=== PATIENT | female | born 1975 | race Caucasian/White ===

== ENCOUNTER 2023-02-13 16:01 | Emergency (ER) | payer BC ==
[2023-02-13] MEDS ORDERED: Ketorolac 30 MG/ML SDV IM ONE (16:24)
== END 2023-02-13 16:45 | disposition home or self-care (01) ==
LOC: VM.ED 16:01
DX: K03.81 Cracked tooth (principal); K02.9 Dental caries, unspecified; Z88.1 Allergy status to other antibiotic agents; Z72.0 Tobacco use
CPT/HCPCS: 96372; 99283; J1885

== ENCOUNTER 2023-04-06 12:45 | Emergency (ER) | payer BC ==
[2023-04-06] MEDS ORDERED: Take Home: Amoxicillin/Clavulanate K 875-125 MG Tab, 2 Tab Pack PO ONE (12:57)
== END 2023-04-06 13:11 | disposition home or self-care (01) ==
LOC: VM.ED 12:45
DX: K04.7 Periapical abscess without sinus (principal); K02.9 Dental caries, unspecified; Z72.0 Tobacco use; Z88.1 Allergy status to other antibiotic agents
CPT/HCPCS: 99282; A9270

== ENCOUNTER 2024-03-25 19:39 | Emergency (ER) | payer BC ==
[2024-03-25 20:27] LABS: HEMATOCRIT 43.5 % (33.0-47.0); HEMOGLOBIN 13.8 g/dL (12.0-16.0); MEAN CORPUSCULAR HEMOGLOBIN 26.5 pg (26.0-32.0); MEAN CORPUSCULAR HGB CONC 31.7 g/dL (32.0-36.0); MEAN CORPUSCULAR VOLUME 83.5 fL (78.0-93.0); PLATELET COUNT,PLT 144 x10^3/uL (130-400); RED BLOOD CELL COUNT 5.21 x10^6/uL (4.00-5.50)
[2024-03-25 20:51] LABS: WHITE BLOOD CELL COUNT,WBC 1.9 x10^3/uL (4.0-10.0)
[2024-03-25 20:56] LABS: BAND PERCENT MAN 3 % (0-6); LYMPHOCYTES ABSOLUTE MAN 0.5 x10^3/uL (1.0-4.8); LYMPHOCYTES PERCENT MAN 25 % (25-50); MONOCYTES PERCENT MAN 1 % (2-11); NEUTROPHILS ABSOLUTE MAN 1.4 x10^3/uL (1.8-7.7); SEG NEUTROPHILS PERCENT MAN 71 % (50-80)
[2024-03-25 20:57] LABS: PLATELET COUNT ESTIMATE ADEQUATE
[2024-03-25 20:59] LABS: ANION GAP 19.6 mmol/L (5-15); BLOOD UREA NITROGEN,BUN 16 mg/dL (7-18); C-REACTIVE PROTEIN < 0.50 mg/dL (<=0.50); CARBON DIOXIDE,CO2 22 mmol/L (21-32); CHLORIDE,CL 102 mmol/L (98-107); CREATININE 1.1 mg/dL (0.55-1.02); ESTIMATED GFR 62 mL/min (>=60); GLUCOSE RANDOM 124 mg/dL (70-99); POTASSIUM,K 3.6 mmol/L (3.5-5.1); SODIUM,NA 140 mmol/L (136-145)
[2024-03-25] MEDS: Ketorolac 30 MG/ML SDV IVPUSH ONE (21:13)
[2024-03-25 21:18] LABS: AMPHETAMINES SCREEN, URINE POSITIVE (NEGATIVE); BARBITURATE SCREEN,URINE NEGATIVE (NEGATIVE); BENZODIAZEPINES SCREEN,URINE POSITIVE (NEGATIVE); BUPRENORPHINE SCREEN,URINE POSITIVE (NEGATIVE); COCAINE METABOLITES,URINE NEGATIVE (NEGATIVE); METHADONE SCREEN, URINE NEGATIVE (NEGATIVE); METHAMPHETAMINE SCREEN, URINE POSITIVE (NEGATIVE); OXYCODONE SCREEN,URINE NEGATIVE (NEGATIVE); PCP SCREEN,URINE NEGATIVE (NEGATIVE); THC SCREEN,URINE 50 NG/ML POSITIVE (NEGATIVE)
[2024-03-25] MEDS: Iopamidol 612 MG/ML 100 ML Bottle IVPUSH ONE (21:52)
[2024-03-25 22:37] LABS: APPEARANCE,URINE CLEAR (CLEAR); BILIRUBIN,URINE NEGATIVE (NEGATIVE); COLOR,URINE YELLOW (YELLOW); GLUCOSE,URINE NEGATIVE (NEGATIVE); KETONES,URINE NEGATIVE (NEGATIVE); LEUKOCYTE ESTERASE,URINE SMALL (NEGATIVE); NITRITE,URINE NEGATIVE (NEGATIVE); OCCULT BLOOD,URINE NEGATIVE (NEGATIVE); PROTEIN,URINE NEGATIVE (NEGATIVE); UROBILINOGEN,URINE 0.2 EU/dL (0.2)
[2024-03-25 22:47] LABS: BACTERIA,URINE OCCASIONAL /HPF (NOT SEEN); MUCUS,URINE OCCASIONAL /LPF (NOT SEEN); RBC,URINE 0-5 /HPF (NOT SEEN); SQUAMOUS EPITHELIAL CELLS,UR OCCASIONAL /HPF (NOT SEEN); WBC,URINE 0-5 /HPF (NOT SEEN)
[2024-03-25] MEDS: Levofloxacin 250 MG Tab PO ONE (22:55)
[2024-03-25] MEDS: Take Home: Levofloxacin 500 MG Tab, 1 Tab Pack PO ONE (22:55)
== END 2024-03-25 23:22 | disposition home or self-care (01) ==
LOC: VM.ED 19:39
DX: N12 Tubulo-interstitial nephritis, not specified as acute or chronic (principal); F15.10 Other stimulant abuse, uncomplicated
CPT/HCPCS: 36415; 72132; 80048; 80305-QW; 81001; 81025; 85025; 86140; 96374; 99283-25; 99284; A9270-GY; J1885; Q9967

== ENCOUNTER 2024-04-10 04:15 | Emergency (ER) | payer SELFPAY | END 2024-04-10 05:15 | disposition home or self-care (01) | LOC: VM.ED 04:15 | DX: L02.413 Cutaneous abscess of right upper limb (principal); Z88.1 Allergy status to other antibiotic agents; Z88.6 Allergy status to analgesic agent | CPT/HCPCS: 99283 ==

== ENCOUNTER 2024-04-29 05:10 | Emergency (ER) | payer BC ==
[2024-04-29] MEDS ORDERED: Sodium Chloride 0.9% 10 ML Syringe FLUSH PRN (05:19)
[2024-04-29] MEDS: Lactated Ringers 1,000 ML IV ONE (05:45)
[2024-04-29] MEDS: Ondansetron 4 MG/2 ML SDV IVPUSH ONE (05:49)
[2024-04-29] MEDS: Ketorolac 15 MG/ML SDV IVPUSH ONE (05:51)
[2024-04-29] MEDS: HYDROmorphone 0.5 MG/0.5 ML Syringe IVPUSH ONE ×2 (05:53→07:23)
[2024-04-29 05:58] LABS: BASOPHILS PERCENT AUTO 0.2 % (0.2-1.2); HEMATOCRIT 35.9 % (33.0-47.0); HEMOGLOBIN 11.7 g/dL (12.0-16.0); IMMATURE GRAN ABSOLUTE AUTO 0.04 x10^3/uL (0.00-0.07); LYMPHOCYTES ABSOLUTE AUTO 0.4 x10^3/uL (1.0-4.8); LYMPHOCYTES PERCENT AUTO 8.5 % (25.0-50.0); MEAN CORPUSCULAR HEMOGLOBIN 26.8 pg (26.0-32.0); MEAN CORPUSCULAR HGB CONC 32.6 g/dL (32.0-36.0); MEAN CORPUSCULAR VOLUME 82.3 fL (78.0-93.0); MONOCYTES PERCENT AUTO 0.5 % (2.0-11.0); NEUTROPHILS ABSOLUTE AUTO 3.6 x10^3/uL (1.8-7.7); NEUTROPHILS PERCENT AUTO 88.8 % (50.0-80.0); PLATELET COUNT,PLT 141 x10^3/uL (130-400); RED BLOOD CELL COUNT 4.36 x10^6/uL (4.00-5.50); WHITE BLOOD CELL COUNT,WBC 4.1 x10^3/uL (4.0-10.0)
[2024-04-29 06:23] LABS: A/G RATIO 0.78; ALBUMIN 3.2 g/dL (3.4-5.0); BILIRUBIN TOTAL 0.7 mg/dL (0.2-1.0); C-REACTIVE PROTEIN 2.99 mg/dL (<=0.50); CALCIUM 8.8 mg/dL (8.5-10.1); EST CRCL DRUG DOSING (CG) 71.12 mL/min; MAGNESIUM 1.5 mg/dL (1.8-2.4); PROTEIN TOTAL,TP 7.3 g/dL (6.4-8.2)
[2024-04-29 06:27] LABS: LACTIC ACID 1.1 mmol/L (0.4-2.0)
[2024-04-29 06:55] LABS: APPEARANCE,URINE CLEAR (CLEAR); BILIRUBIN,URINE NEGATIVE (NEGATIVE); COLOR,URINE YELLOW (YELLOW); GLUCOSE,URINE NEGATIVE (NEGATIVE); KETONES,URINE NEGATIVE (NEGATIVE); LEUKOCYTE ESTERASE,URINE NEGATIVE (NEGATIVE); NITRITE,URINE NEGATIVE (NEGATIVE); OCCULT BLOOD,URINE NEGATIVE (NEGATIVE); PH,URINE 5.5 (5.0-8.0); PROTEIN,URINE NEGATIVE (NEGATIVE); UROBILINOGEN,URINE 0.2 EU/dL (0.2)
[2024-04-29] MEDS: Acetaminophen 500 MG Tab PO ONE (06:59)
== END 2024-04-29 09:19 | disposition home or self-care (01) ==
LOC: VM.ED 05:10
DX: M54.50 Low back pain, unspecified (principal); R50.9 Fever, unspecified; Z88.1 Allergy status to other antibiotic agents; Z88.8 Allergy status to other drugs, medicaments and biological substances; Z79.899 Other long term (current) drug therapy
CPT/HCPCS: 36415; 74176; 80053; 81003; 81025; 83605; 83735; 85025; 86140; 87040; 96361; 96374; 96375; 96376; 99284; 99284-25; A9270-GY; J1171; J1885; J2405; J7120

== ENCOUNTER 2024-08-24 17:31 | Emergency (ER) | payer BC ==
[2024-08-24] MEDS: Dexamethasone 4 MG/ML SDV IM ONE (17:53)
[2024-08-24] MEDS: Amoxicillin 500 MG Cap PO ONE (17:53)
== END 2024-08-24 18:07 | disposition home or self-care (01) ==
LOC: VM.ED 17:31
DX: J01.10 Acute frontal sinusitis, unspecified (principal); Z88.1 Allergy status to other antibiotic agents
CPT/HCPCS: 96372; 99283; A9270-GY; J1100

== ENCOUNTER 2024-09-22 17:12 | Emergency (ER) | payer BC ==
[2024-09-22] MEDS: Take Home: Naproxen 500 MG Tab, 4 Tab Pack PO ONE (18:14)
== END 2024-09-22 18:19 | disposition home or self-care (01) ==
LOC: VM.ED 17:12
DX: S20.212A Contusion of left front wall of thorax, initial encounter (principal); F17.210 Nicotine dependence, cigarettes, uncomplicated; Z88.1 Allergy status to other antibiotic agents; Z79.899 Other long term (current) drug therapy; W22.8XXA Striking against or struck by other objects, initial encounter; Y93.89 Activity, other specified
CPT/HCPCS: 71046; 99283; A9270-GY

== ENCOUNTER 2025-03-23 20:02 | Emergency (ER) | payer BC, MEDICAID ==
[2025-03-23] MEDS ORDERED: Sodium Chloride 0.9% 10 ML Syringe FLUSH PRN (20:11)
[2025-03-23] MEDS: Ketorolac 15 MG/ML SDV IVPUSH ONE (20:38)
[2025-03-23] MEDS: Acetaminophen/HYDROcodone 325-5 MG Tab PO ONE (21:25)
[2025-03-23] MEDS: Take Home: Acetaminophen/HYDROcodone 325-5 MG, 5 Tab Pack PO ONE (21:26)
== END 2025-03-23 22:05 | disposition home or self-care (01) ==
LOC: VM.ED 20:02
DX: S83.92XA Sprain of unspecified site of left knee, initial encounter (principal); Z88.1 Allergy status to other antibiotic agents; Z88.8 Allergy status to other drugs, medicaments and biological substances; W01.198A Fall on same level from slipping, tripping and stumbling with subsequent striking against other object, initial encounter; Y93.89 Activity, other specified
CPT/HCPCS: 73562-LT; 96374; 99283; 99284-25; A9270-GY; J1885